=== PATIENT | female | born 1970 | race African-American/Black ===

== ENCOUNTER 2020-02-16 14:13 | Emergency (ER) | payer OTHER ==
[2020-02-16 14:18] VITALS: BP 166/88
[2020-02-16] MEDS ORDERED: FAMOTIDINE INJ/PF 20 MG/2 ML SDV IV ONE (14:44)
[2020-02-16] MEDS ORDERED: METHYLPREDNISOLONE INJ 125 MG/2 ML SDV IV ONE (14:44)
--- NOTE | 2020-02-16 14:45 | ER Document Report ---
ED Medical Screen (RME) - General Chief Complaint: Facial Swelling Stated Complaint: FACIAL SWELLING Time Seen by Provider: 02/16/20 14:40 Mode of Arrival: Ambulatory Information source: Patient Notes: 49-year-old female presented to ED for facial swelling more to the left side than the right side. She states she ate English food last night about 1030 and she dyed her hair on . She states her whole head is weeping. She does not smoke she does drink weekly she does not do any drugs. The left side of her face is very swollen. She states she does not have any swelling to the throat or tongue or any shortness of breath. I have greeted and performed a rapid initial assessment of this patient. A comprehensive ED assessment and evaluation of the patient, analysis of test results and completion of medical decision making process will be conducted by an additional ED providers. - Related Data Allergies/Adverse Reactions: No Known Allergies Allergy (Verified 02/16/20 14:37) Physical Exam - Vital signs Vitals: Temp Pulse Resp BP Pulse Ox 98.0 F 101 H 16 166/88 H 98 02/16/20 14:17 02/16/20 14:17 02/16/20 14:17 02/16/20 14:17 02/16/20 14:17 Course - Vital Signs Vital signs: Temp Pulse Resp BP Pulse Ox 98.0 F 101 H 16 166/88 H 98 02/16/20 14:17 02/16/20 14:17 02/16/20 14:17 02/16/20 14:17 02/16/20 14:17
[2020-02-16] MEDS ORDERED: DIPHENHYDRAMINE HCL 50 MG/ML VIAL ONE (14:57)
[2020-02-16] MEDS ORDERED: DIPHENHYDRAMINE HCL 50 MG/ML VIAL IV ONE (15:05)
--- NOTE | 2020-02-16 15:15 | ER Document Report ---
ED General - General Chief Complaint: Facial Swelling Stated Complaint: FACIAL SWELLING Time Seen by Provider: 02/16/20 14:40 Mode of Arrival: Ambulatory Information source: Patient Notes: 02/16/20 14:40 - [facility] Num: [id number] : 1970 Patient Age: 49 Pt ambulated to triage without difficulty. Pt sitting up to chair, Resp even & unlabored. Pt able to speak in complete sentences. Pt reports swelling to face that started last night. Pt denies difficulty swallowing or breathing at this time. GEORGE Barbour present for triage. Charge nurse-Cat, notified & aware and Pt taken to room 11 at this time. Initialized on 02/16/20 14:40 - END OF NOTE Jessica notes 49-year-old female presented to ED for facial swelling more to the left side than the right side. She states she ate Latv[place] food last night about 1030 and she dyed her hair on . She states her whole head is weeping. She does not smoke she does drink weekly she does not do any drugs. The left side of her face is very swollen. She states she does not have any swelling to the throat or tongue or any shortness of breath. my notes 49-year-old black female arrives with chief complaint of having 48 hours of facial edema and scalp severe allergy with oozing purulence. She also claims that her ears are closing up from the edema. She applied hair dye on herself on around 1500 and began to experience her symptoms later that night and Tuesday but worse today. She denies any swallowing problems but does have swelling around periorbital and facial skin. Scalp is covered with towels because of the allergic oozing process. Patient denies using the diet in the past and denies any allergies to any dyes in the past. TRAVEL OUTSIDE OF THE [place] IN LAST 30 DAYS: No - HPI Onset: Other - x 2 day javier Onset/Duration: Sudden, Persistent, Worse Quality of pain: Achy Severity: Moderate Pain Level: 3 Associated symptoms: Headache Exacerbated by: Movement Relieved by: Denies Similar symptoms previously: No Recently seen / treated by doctor: No - Related Data Allergies/Adverse Reactions: No Known Allergies Allergy (Verified 02/16/20 14:37) Past Medical History - General Information source: Patient - Social History Smoking Status: Never Smoker Cigarette use (# per day): No Chew tobacco use (# tins/day): No Smoking Education Provided: No Frequency of alcohol use: None Drug Abuse: None Lives with: Family Family History: Reviewed & Not Pertinent Patient has suicidal ideation: No Patient has homicidal ideation: No Review of Systems - Review of Systems Constitutional: No symptoms reported EENT: No symptoms reported Cardiovascular: No symptoms reported Respiratory: No symptoms reported Gastrointestinal: No symptoms reported Genitourinary: No symptoms reported Female Genitourinary: No symptoms reported Musculoskeletal: No symptoms reported Skin: See HPI, Change in hair/nails, Rash Hematologic/Lymphatic: No symptoms reported Neurological/Psychological: No symptoms reported Physical Exam - Vital signs Vitals: Temp Pulse Resp BP Pulse Ox 98.0 F 101 H 16 166/88 H 98 02/16/20 14:17 02/16/20 14:17 02/16/20 14:17 02/16/20 14:17 02/16/20 14:17 Interpretation: Hypertensive, Tachycardic - General General appearance: Anxious - HEENT Head: Normocephalic, Other - severe allergic folliculitis of scalp with oozing discharge diffusely around hairline with periorbital edema and periotic edema especially around pre-auricular area. Patient also has edema around cheeks and nasolabial folds. Eyes: Periorbital edema Conjunctiva: Normal Cornea: Normal Extraocular movements intact: Yes Eyelashes: Normal Pupils: PERRL Mouth/Lips: Normal Mucous membranes: Normal Pharynx: Normal Neck: Normal - Respiratory Respiratory status: No respiratory distress Chest status: Nontender Breath sounds: Normal Chest palpation: Normal - Cardiovascular Rhythm: Regular Heart sounds: Normal auscultation Murmur: No - Abdominal Inspection: Normal Distension: No distension Bowel sounds: Normal Tenderness: Nontender Organomegaly: No organomegaly - Rectal Hemorrhoids: Other - Deferred - Genitourinary Speculum exam: Other - Deferred - Back Back: Normal - Extremities General upper extremity: Normal inspection General lower extremity: Normal inspection - Neurological Neuro grossly intact: Yes Cognition: Normal Orientation: AAOx4 Jonathan Coma Scale Eye Opening: Spontaneous [place] Coma Scale Verbal: Oriented [place] Coma Scale Motor: Obeys Commands [place] Coma Scale Total: 15 Speech: Normal Motor strength normal: LUE, RUE, LLE, RLE Sensory: Normal - Psychological Associated symptoms: Anxious - Skin Skin Temperature: Warm Skin Moisture: Dry Skin Color: Other - As per HPI and physical exam of head Course - Vital Signs Vital signs: Temp Pulse Resp BP Pulse Ox 98.0 F 101 H 16 166/88 H 98 02/16/20 14:17 02/16/20 14:17 02/16/20 14:17 02/16/20 14:17 02/16/20 14:17 Critical Care Note - Critical Care Note Total time excluding time spent on procedures (mins): 90 Discharge - Discharge Clinical Impression: Allergic contact dermatitis due to hairdressing product Condition: Fair Disposition: HOME, SELF-CARE Additional Instructions: Apply Caladryl to affected scalp and facial skin daily after gently cleansing scalp and face with cool water only do not apply soap or detergent for least 1 week. Gently pat hair and face dry with a clean dry cloth towel. Then apply Caladryl gently. Return to ER as needed take medicines as directed. Do not use hair dye ever again. May follow-up with personal doctor this week as well. Prescriptions: Hydroxyzine HCl [Atarax 10 mg Tablet] 10 mg PO TID PRN #30 tablet PRN Reason: Pramoxine HCl/Zinc Acetate [Caladryl Clear Lotion] 10 ml TP DAILY #1 bottle Prednisone [Deltasone 20 mg Tablet] 1 tab PO DAILY 5 Days #5 tablet Famotidine [Pepcid 20 mg Tablet] 20 mg PO BID #12 tablet
--- NOTE | 2020-02-16 15:25 | ER Document Report ---
ED General - General Chief Complaint: Facial Swelling Stated Complaint: FACIAL SWELLING Time Seen by Provider: 02/16/20 14:40 Mode of Arrival: Ambulatory Notes: CHIEF COMPLAINT: Facial swelling HPI: 49-year-old female presenting to the emergency department for allergic reaction. Patient used a new hair dye yesterday to color her hair and woke up with swelling of the forehead and eyes today. No difficulty breathing. No difficulty swallowing no difficulty speaking ROS: See HPI - all other systems were reviewed and are otherwise negative Constitutional: no fever Eyes: no drainage, no blurred vision ENT: no runny nose, no sore throat Cardiovascular: no chest pain Resp: no SOB, no cough GI: no vomiting, no diarrhea, no abdominal pain : no dysuria Integumentary: Positive facial swelling and rash to scalp Allergy: no hives Musculoskeletal: no extremity pain or swelling Neurological: no numbness/tingling, no weakness MEDICATIONS: I agree with the patient medications as charted by the RN. ALLERGIES: I agree with the allergies as charted by the RN. PAST MEDICAL HISTORY/PAST SURGICAL HISTORY: Reviewed and agree as charted by RN. SOCIAL HISTORY: Reviewed and agree as charted by RN. FAMILY HISTORY: No significant familial comorbid conditions directly related to patient complaint EXAM: Reviewed vital signs as charted by RN. CONSTITUTIONAL: Alert and oriented and responds appropriately to questions. Well-appearing; well-nourished HEAD: Normocephalic; soft tissue swelling over the forehead and scalp is noted with erythematous rash. EYES: PERRL; Conjunctivae clear, sclerae non-icteric. Bilateral periorbital swelling without erythema is noted ENT: normal nose; no rhinorrhea; moist mucous membranes; pharynx without lesions noted, no uvula edema or deviation, no tonsillar hypertrophy, phonation normal. No angioedema NECK: Supple without meningismus; non-tender; no cervical lymphadenopathy, no masses. No stridor CARD: RRR; no murmurs, no clicks, no rubs, no gallops; symmetric distal pulses RESP: Normal chest excursion without splinting or tachypnea; breath sounds clear and equal bilaterally; no wheezes, no rhonchi, no rales, pulse oximetry 98% on room air not hypoxic. ABD/GI: Normal bowel sounds; non-distended; soft, non-tender, no rebound, no guarding; no palpable organomegaly or masses. BACK: The back appears normal and is non-tender to palpation, there is no CVA tenderness EXT: Normal ROM in all joints; non-tender to palpation; no cyanosis, no effusions, no edema SKIN: Normal color for age and race; warm; dry; good turgor NEURO: Moves all extremities equally; Motor and sensory function intact PSYCH: The patient's mood and manner are appropriate. Grooming and personal hygiene are appropriate. MDM: 49-year-old female with likely allergic reaction or contact reaction to hair dye. Will give steroids antihistamines, cool compresses will recheck patient if improvement will discharge home on steroids and antihistamines TRAVEL OUTSIDE OF THE [place] IN LAST 30 DAYS: No - Related Data Allergies/Adverse Reactions: No Known Allergies Allergy (Verified 02/16/20 14:37) Past Medical History - General Information source: Patient - Social History Smoking Status: Never Smoker Family History: Reviewed & Not Pertinent Patient has homicidal ideation: No Physical Exam - Vital signs Vitals: Temp Pulse Resp BP Pulse Ox 98.0 F 101 H 16 166/88 H 98 02/16/20 14:17 02/16/20 14:17 02/16/20 14:17 02/16/20 14:17 02/16/20 14:17 Course - Re-evaluation Re-evalutation: 02/16/20 17:04 Patient's periorbital swelling is slightly improved. She states she feels like the swelling is better. No shortness of breath or angioedema. Will discharge home with continued treatment, follow-up PCP - Vital Signs Vital signs: Temp Pulse Resp BP Pulse Ox 98.0 F 101 H 16 166/88 H 98 02/16/20 14:17 02/16/20 14:17 02/16/20 14:17 02/16/20 14:17 02/16/20 14:17 Discharge - Discharge Clinical Impression: Allergic contact dermatitis due to hairdressing product Condition: Fair Disposition: HOME, SELF-CARE Additional Instructions: Apply Caladryl to affected scalp and facial skin daily after gently cleansing scalp and face with cool water only do not apply soap or detergent for least 1 week. Gently pat hair and face dry with a clean dry cloth towel. Then apply Caladryl gently. Return to ER as needed take medicines as directed. Do not use hair dye ever again. May follow-up with personal doctor this week as well. Prescriptions: Hydroxyzine HCl [Atarax 10 mg Tablet] 10 mg PO TID PRN #30 tablet PRN Reason: Pramoxine HCl/Zinc Acetate [Caladryl Clear Lotion] 10 ml TP DAILY #1 bottle Prednisone [Deltasone 20 mg Tablet] 1 tab PO DAILY 5 Days #5 tablet Famotidine [Pepcid 20 mg Tablet] 20 mg PO BID #12 tablet Referrals: ADORE KIM MD [ACTIVE STAFF] - Follow up as needed
[2020-02-16] MEDS ORDERED: CEFTRIAXONE INJ 1000 MG VIAL IV ONE (15:39)
[2020-02-16] MEDS ORDERED: DEXAMETHASONE SOD PHOS INJ 10 MG/1 ML VIAL IV ONE (15:39)
[2020-02-16] MEDS ORDERED: CALAMINE/ZINC OXIDE LOTION 177 ML/BOTTLE TP ONE (15:41)
== END 2020-02-16 17:44 | disposition home or self-care (01) ==
LOC: ER 14:13
DX: T65.6X1A Toxic effect of paints and dyes, not elsewhere classified, accidental (unintentional), initial encounter (principal); L23.4 Allergic contact dermatitis due to dyes; L73.8 Other specified follicular disorders; R00.0 Tachycardia, unspecified; R03.0 Elevated blood-pressure reading, without diagnosis of hypertension
CPT/HCPCS: 99283; 96374; 96375; J1200; J2930; S0028; J3490